=== PATIENT | male | born 1990 | race Caucasian/White ===

== ENCOUNTER 2023-09-24 19:07 | Emergency (ER) | payer OTHER ==
[~2023-09-24] VITALS: Ht 190.5 cm; Wt 125.0 kg
[2023-09-24 19:15] VITALS: BP 149/97; TEMP 97.9
[2023-09-24 21:26] VITALS: PULSE 93
== END 2023-09-24 21:26 | disposition home or self-care (01) ==
LOC: COL.ER 19:07
DX: H10.9 Unspecified conjunctivitis (principal)